=== PATIENT | female | born 1965 | race Caucasian/White ===

== ENCOUNTER → 2017-06-09 | Outpatient (CLI) | payer OTHER | LOC: FIMAGING 14:35 | PROVIDERS: ATTEND Internal Medicine | DX: Z13.820 Encounter for screening for osteoporosis (principal); M54.9 Dorsalgia, unspecified; Z90.711 Acquired absence of uterus with remaining cervical stump; Z79.890 Hormone replacement therapy; Z98.1 Arthrodesis status ==